=== PATIENT | female | born 1940 | race Caucasian/White ===

== ENCOUNTER 2016-12-26 15:09 | Observation (INO) | payer MEDICARE, OTHER ==
[~2016-12-26] VITALS: Ht 172.7 cm; Wt 73.0 kg
[2016-12-26] VITALS (7 sets, daily range): BP systolic 137–185; BP diastolic 58–80; PULSE 57–65; RESP 14–18; TEMP 97.5–98.4; O2SAT 96–100
[2016-12-26] MEDS ORDERED: SODIUM CHLOR 0.9% 1000 ML INJ 1,000 ML IV ONE (16:00)
[2016-12-26] MEDS ORDERED: SODIUM CHLORIDE 0.9% FLUSH 10 ML FLUSH IVF PRN (16:00)
[2016-12-26] MEDS ORDERED: ONDANSETRON HCL 4 MG/2 ML VIAL IVP ONE (16:00)
[2016-12-26] MEDS ORDERED: TETANUS/DIPHTHERIA TOXOID ADULT 0.5 ML VIAL IM ONE (16:00)
[2016-12-26] MEDS ORDERED: LEVO.075 PO (16:01)
[2016-12-26] MEDS ORDERED: VITA250T3 PO (16:01)
[2016-12-26] MEDS ORDERED: LEXA5TAB PO (16:01)
[2016-12-26] MEDS ORDERED: COQ-50CA2 PO (16:01)
[2016-12-26] MEDS ORDERED: ATEN1TAB73 PO (16:01)
[2016-12-26] MEDS ORDERED: FLAX100013 PO (16:01)
[2016-12-26] MEDS ORDERED: GLUC15009 PO (16:01)
[2016-12-26] MEDS ORDERED: PRAV20TA2 PO (16:01)
[2016-12-26] MEDS ORDERED: MSM1000C PO (16:01)
[2016-12-26] MEDS ORDERED: ALPR.25 PO (16:01)
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
[2016-12-26 16:24] LABS: AUTOMATED NEUTROPHIL # 4.3 TH/MM3 (1.8-7.7); BASOPHIL % 0.2 % (0.0-2.0); EOSINOPHIL # 0.2 TH/MM3 (0-0.4); EOSINOPHIL % 1.8 % (0.0-4.0); HEMATOCRIT 37.3 % (35.0-46.0); HEMO FLAGS DIFF FINAL; LYMPH % 43.5 % (9.0-44.0); LYMPHOCYTE # 3.9 TH/MM3 (1.0-4.8); MEAN CELL VOLUME 93.6 FL (80.0-100.0); MEAN CORPUSCULAR HEMOGLOBIN 31.4 PG (27.0-34.0); MEAN CORPUSCULAR HGB CONC 33.5 % (32.0-36.0); MONO % 6.7 % (0.0-8.0); NEUT % 47.8 % (16.0-70.0); PLATELET COUNT 172 TH/MM3 (150-450); RED BLOOD COUNT 3.98 MIL/MM3 (4.00-5.30); RED CELL DISTRIBUTION WIDTH 13.1 % (11.6-17.2)
[2016-12-26 16:30] LABS: BACTERIA, URINE MANY /hpf; BLOOD, URINE NEG (NEG); COMMENT (UR) CATH-CULTURE IND; CULTURE IF INDICATED CATH CULTURE IND; GLUCOSE,URINE NEG (NEG); KETONE, URINE 10 mg/dL (NEG); NITRITE,URINE POS (NEG); PH, URINE 6.5 (5.0-8.5); SQUAMOUS EPITHELIAL CELL URINE <1 /hpf (0-5); URINE COLOR YELLOW (YELLW/STRAW)
[2016-12-26] MEDS ORDERED: LIDOCAINE HCL 1% 50 ML VIAL ONE (16:33)
--- NOTE | 2016-12-26 16:34 | RADRPT ---
EXAM DATE/TIME: 12/26/2016 16:10 [facility] COMPARISON: No previous studies available for comparison. INDICATIONS : Syncopal episode laceration above left eye, nausea, vomiting. RADIATION DOSE: 56.35 CTDIvol (mGy) MEDICAL HISTORY : Hypertension. Thyroid disease SURGICAL HISTORY : None. ENCOUNTER: Initial ACUITY: 1 day PAIN SCALE: 0/10 LOCATION: cranial TECHNIQUE: Multiple contiguous axial images were obtained of the head. Using automated exposure control and adj ustment of the mA and/or kV according to patient size, radiation dose was kept as low as reasonably a chievable to obtain optimal diagnostic quality images. DICOM format image data is available electro nically for review and comparison. FINDINGS: CEREBRUM: The ventricles are normal for age. No evidence of midline shift, mass lesion, hemorrhage or acute in farction. No extra-axial fluid collections are seen. POSTERIOR FOSSA: The cerebellum and brainstem are intact. The 4th ventricle is midline. The cerebellopontine angle i s unremarkable. EXTRACRANIAL: The visualized portion of the orbits is intact. There is soft tissue swelling over the left frontal b one and orbit SKULL: The calvaria is intact. No evidence of skull fracture. CONCLUSION: Soft tissue swelling over the left orbit and frontal bone with no evidence of fracture or hemorrhage. Simon Ceballos MD on December 26, 2016 at 16:31 Board Certified Radiologist. This report was verified electronically.
[2016-12-26 16:55] LABS: ALT (GPT) 56 U/L (10-53); ANION GAP 10 MEQ/L (5-15); AST (GOT) 75 U/L (15-37); BICARBONATE 25.4 MEQ/L (21.0-32.0); BLOOD UREA NITROGEN 22 MG/DL (7-18); CHLORIDE 107 MEQ/L (98-107); GLOMERULAR FILTRATION RATE 54 ML/MIN (>89); POTASSIUM 3.4 MEQ/L (3.5-5.1); SODIUM (NA) 142 MEQ/L (136-145)
[2016-12-26 16:59] LABS: ALKALINE PHOSPHATASE 62 U/L (45-117); TOTAL BILIRUBIN ADULT 0.5 MG/DL (0.2-1.0)
[2016-12-26] MEDS ORDERED: cefTRIAXone INJ 1,000 MG in SODIUM CHLORIDE 0.9% INJ 100 ML IV ONE (17:00)
--- NOTE | 2016-12-26 17:18 | PD ---
Physical Exam Date Seen by Provider: Dec 26, 2016 Time Seen by Provider: 17:15 Narrative I was asked by attending physician to perform a laceration repair LACERATION LOCATION: Left upper eye LENGTH: 4 cm NUMBER OF STITCHES/SUMANTH: 6 sutures REPAIR: The area of the laceration was prepped with Betadine and sterilely draped. The laceration was infiltrated with 1% lidocaine. The wound was copiously irrigated and explored without evidence of foreign body, tendon injury or neurovascular injury. The wound was closed using 5.0 Prolene. This was a single layer repair. A sterile dressing was applied. The patient was advised to keep the dressing clean and dry. Patient tolerated the procedure well. Data Data Last Documented VS Vital Signs Date Time Temp Pulse Resp B/P (MAP) Pulse Ox O2 Delivery O2 Flow Rate FiO2 12/26/16 16:12 100 Room Air 12/26/16 15:22 97.5 65 14 185/80 (115) Orders Orders Electrocardiogram (12/26/16 15:31) Complete Blood Count With Diff (12/26/16 15:31) Comprehensive Metabolic Panel (12/26/16 15:31) Iv Access Insert/Monitor (12/26/16 15:31) Prothrombin Time / Inr (Pt) (12/26/16 15:56) Urinalysis - C+S If Indicated (12/26/16 15:56) Ct Brain W/O Iv Contrast(Rout) (12/26/16 15:56) Ecg Monitoring (12/26/16 15:56) Oximetry (12/26/16 15:56) Ondansetron Inj (Zofran Inj) (12/26/16 16:00) Sodium Chloride 0.9% Flush (Ns Flush) (12/26/16 16:00) Sodium Chlor 0.9% 1000 Ml Inj (Ns 1000 M (12/26/16 16:00) Tetanus/Diphtheria Tox Adult (Tetanus/Di (12/26/16 16:00) Urine Culture (12/26/16 16:00) Troponin I (12/26/16 15:30) Lidocaine 1% Inj (50 Ml) (Xylocaine 1% I (12/26/16 16:33) Blood Culture (12/26/16 16:49) Ceftriaxone Inj (Rocephin Inj) (12/26/16 17:00) Labs Laboratory Tests Test 12/26/16 15:30 12/26/16 16:00 White Blood Count 9.0 TH/MM3 Red Blood Count 3.98 MIL/MM3 Hemoglobin 12.5 GM/DL Hematocrit 37.3 % Mean Corpuscular Volume 93.6 FL Mean Corpuscular Hemoglobin 31.4 PG Mean Corpuscular Hemoglobin Concent 33.5 % Red Cell Distribution Width 13.1 % Platelet Count 172 TH/MM3 Mean Platelet Volume 8.4 FL Neutrophils (%) (Auto) 47.8 % Lymphocytes (%) (Auto) 43.5 % Monocytes (%) (Auto) 6.7 % Eosinophils (%) (Auto) 1.8 % Basophils (%) (Auto) 0.2 % Neutrophils # (Auto) 4.3 TH/MM3 Lymphocytes # (Auto) 3.9 TH/MM3 Monocytes # (Auto) 0.6 TH/MM3 Eosinophils # (Auto) 0.2 TH/MM3 Basophils # (Auto) 0.0 TH/MM3 CBC Comment DIFF FINAL Differential Comment Blood Urea Nitrogen 22 MG/DL Creatinine 0.99 MG/DL Random Glucose 110 MG/DL Total Protein 7.7 GM/DL Albumin 4.1 GM/DL Calcium Level 9.4 MG/DL Alkaline Phosphatase 62 U/L Aspartate Amino Transf (AST/SGOT) 75 U/L Alanine Aminotransferase (ALT/SGPT) 56 U/L Total Bilirubin 0.5 MG/DL Sodium Level 142 MEQ/L Potassium Level 3.4 MEQ/L Chloride Level 107 MEQ/L Carbon Dioxide Level 25.4 MEQ/L Anion Gap 10 MEQ/L Estimat Glomerular Filtration Rate 54 ML/MIN Troponin I LESS THAN 0.02 NG/ML Prothrombin Time 11.0 SEC Prothromb Time International Ratio 1.0 RATIO Urine Color YELLOW Urine Turbidity HAZY Urine pH 6.5 Urine Specific [place] 1.020 Urine Protein TRACE mg/dL Urine Glucose (UA) NEG mg/dL Urine Ketones 10 mg/dL Urine Occult Blood NEG Urine Nitrite POS Urine Bilirubin NEG Urine Urobilinogen LESS THAN 2.0 MG/DL Urine Leukocyte Esterase LARGE Urine RBC 5 /hpf Urine WBC 68 /hpf Urine Squamous Epithelial Cells <1 /hpf Urine Amorphous Sediment RARE Urine Bacteria MANY /hpf Microscopic Urinalysis Comment CATH-CULTURE IND MDM Medical Record Reviewed: Yes Supervised Visit with LUIS: Yes Diagnosis Primary Impression: Syncope Qualified Codes: R55 - Syncope and collapse Additional Impressions: Concussion Qualified Codes: S06.0X1A - Concussion with loss of consciousness of 30 minutes or less, initial encounter Retrograde amnesia Closed head injury Qualified Codes: S09.90XA - Unspecified injury of head, initial encounter Facial laceration Qualified Codes: S01.81XA - Laceration without foreign body of other part of head, initial encounter UTI (urinary tract infection) Qualified Codes: N39.0 - Urinary tract infection, site not specified Sarah Quezada [facility] Dec 26, 2016 17:18
[2016-12-26] MEDS ORDERED: SODIUM CHLORIDE 0.9% FLUSH 10 ML FLUSH IV FLUSH PRN (17:30)
[2016-12-26] MEDS ORDERED: ALPRAZolam 0.25 MG TAB PO PRN (18:30)
[2016-12-26] MEDS ORDERED: ENALAPRILAT 1.25 MG/ML VIAL IV PUSH PRN (18:30)
[2016-12-26] MEDS ORDERED: hydrALAZINE HCL 10 MG TAB PO PRN (18:30)
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
[2016-12-26] MEDS ORDERED: POTASSIUM CHLORIDE 20 MEQ CONTROLLED RELEASE TAB PO ONE (19:00)
[2016-12-26] MEDS ORDERED: ESCITALOPRAM OXALATE 10 MG TAB PO SCH (21:00)
[2016-12-26] MEDS ORDERED: LEVOTHYROXINE SODIUM 75 MCG TAB PO SCH (21:00)
[2016-12-26] MEDS: SODIUM CHLORIDE 0.9% FLUSH 10 ML FLUSH IV FLUSH SCH (21:25)
--- NOTE | 2016-12-26 22:32 | RADRPT ---
EXAM DATE/TIME: 12/26/2016 21:22 [place] COMPARISON: No previous studies available for comparison. INDICATIONS : Syncope. MEDICAL HISTORY : Hypertension. Thyroid disease. Syncope. SURGICAL HISTORY : None. ENCOUNTER: Initial ACUITY: 1 day PAIN SCORE: 7/10 LOCATION: Bilateral neck PEAK SYSTOLIC VELOCITIES (cm/sec): ICA/CCA RATIO: Right: 1.0 Left: 1.2 ICA: Right: 88.3 Left: 90.4 CCA: Right: 84.3 Left: 72.7 ECA: Right: 98.3 Left: 80.6 VERTEBRAL: Right: 37.4 antegrade Left: 60.9 antegrade Elevated flow velocities and ICA/CCA ratios have been found to correlate with increased degrees of vessel stenosis, calculated as percentage of diameter relative to a normal segment of distal ICA/CCA FINDINGS: RIGHT CAROTID: Trace atherosclerotic plaque of the bulb and proximal internal carotid artery. LEFT CAROTID: Mild atherosclerotic plaque of the bulb and proximal internal carotid artery. By cross-section, appro ximately 30% narrowing of the proximal ICA. VERTEBRAL ARTERIES: Antegrade flow is seen in both vertebral arteries. MISCELLANEOUS: None. CONCLUSION: Bilateral bifurcation atherosclerotic plaque, minimal on the right and mild on the left. No hemodynam ically significant narrowing. Julio Lucio MD on December 26, 2016 at 22:29 Board Certified Radiologist. This report was verified electronically.
[2016-12-27 03:22] VITALS: BP 144/65; PULSE 58; RESP 16; TEMP 98.2; O2SAT 97
[2016-12-27 07:45] VITALS: BP_SYST 154; BP_SYST 181; BP_DIAS 69; BP_DIAS 73; PULSE 60; RESP 16; TEMP 98.3; O2SAT 95
[2016-12-27] MEDS: SODIUM CHLORIDE 0.9% FLUSH 10 ML FLUSH IV FLUSH SCH (08:49)
[2016-12-27] MEDS ORDERED: PRAVASTATIN SOD 20 MG TAB PO SCH (09:00)
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
[2016-12-27] MEDS ORDERED: SODIUM CHLOR 0.9% 1000 ML INJ 1,000 ML IV SCH (11:45)
[2016-12-27 12:00] VITALS: BP 129/58; PULSE 64; RESP 18; TEMP 98.5; O2SAT 96
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
[2016-12-27 14:56] LABS: ALT (GPT) 43 U/L (10-53); ANION GAP 9 MEQ/L (5-15); AST (GOT) 44 U/L (15-37); BICARBONATE 27.7 MEQ/L (21.0-32.0); BLOOD UREA NITROGEN 16 MG/DL (7-18); CHLORIDE 104 MEQ/L (98-107); GLOMERULAR FILTRATION RATE 67 ML/MIN (>89); POTASSIUM 3.9 MEQ/L (3.5-5.1); SODIUM (NA) 141 MEQ/L (136-145)
[2016-12-27 14:59] LABS: ALKALINE PHOSPHATASE 56 U/L (45-117); TOTAL BILIRUBIN ADULT 0.5 MG/DL (0.2-1.0)
[2016-12-27 15:38] VITALS: BP 138/62; PULSE 63; RESP 18; TEMP 98.1; O2SAT 98
[2016-12-27 16:58] VITALS: PULSE 65
[2016-12-27] MEDS ORDERED: cefTRIAXone INJ 1,000 MG in SODIUM CHLORIDE 0.9% INJ 100 ML IV SCH (17:00)
[2016-12-27] MEDS ORDERED: AMLO10 PO (17:40)
[2016-12-27] MEDS ORDERED: NITR100C4 PO (17:40)
[2016-12-27] MEDS ORDERED: NITROFURANTOIN MONOHYD MACROCR 100 MG CAP PO SCH (18:00)
--- NOTE | 2016-12-27 19:40 | MG ---
cc: JACK VASQUEZ Lab No: [id number] Date: 12/27/2016 Age: 76 Sex: F Race: ___ TECHNIQUE 17 channel EEG. DESCRIPTION The background rhythm is a symmetrical alpha rhythm, frequency 8-10 Hz, amplitude is about 20 microvolts. Occasional eye movement and muscle artifact present. There are no lateralizing features seen. There are no epileptiform features. Photic results in a normal driving response. INTERPRETATION Normal EEG MD VIVIAN Paez/LAURO /7:04 PM /7:34 PM
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
--- NOTE | 2016-12-27 21:48 | EKG ---
Date Performed: 12/26/2016 Time Performed: 15:36:19 PTAGE: 76 years EKG: SINUS BRADYCARDIA POSSIBLE LEFT ATRIAL ENLARGEMENT MODERATE INTRAVENTRICULAR CONDUCTION DEL AY PROLONGED QT INTERVAL ABNORMAL ECG NO PREVIOUS TRACING DOCTOR: Kody Velazquez Interpretating Date/Time 12/27/2016 21:46:50
--- NOTE | 2016-12-28 08:13 | ECHRPT ---
Indication: CONCLUSIONS Normal left ventricular size. The left ventricular systolic function is hyperdynamic with an estimated ejection fraction in the ra nge of 65- 70%. Trace mitral valve regurgitation. There is trace tricuspid valve regurgitation. Normal estimated pulmonary pressures. BP: 144 / 65 HR: 58 Rhythm: Sinus MEASUREMENTS (Male / Female) Normal Values Technical Quality:Technically difficult study 2D ECHO LV Diastolic Diameter PLAX 4.2 cm 4.2 - 5.9 / 3.9 - 5.3 cm LV Systolic Diameter PLAX 2.8 cm IVS Diastolic Thickness 0.8 cm 0.6 - 1.0 / 0.6 - 0.9 cm LVPW Diastolic Thickness 0.8 cm 0.6 - 1.0 / 0.6 - 0.9 cm LV Relative Wall Thickness 0.4 LVOT Diameter 1.7 cm Aortic Root Diameter 2.1 cm LA Systolic Diameter LX 3.1 cm 3.0 - 4.0 / 2.7 - 3.8 cm M-MODE AV Cusp Separation MM 1.8 cm DOPPLER AV Peak Velocity 157.5 cm/s AV Peak Gradient 9.9 mmHg AV Mean Gradient 5.0 mmHg AV Velocity Time Integral 34.6 cm LVOT Peak Velocity 100.2 cm/s LVOT Peak Gradient 4.0 mmHg LVOT Velocity Time Integral 23.7 cm LVOT Cardiac Index 1665.6 cm/minm AV Area Cont Eq vti 1.6 cm AV Area Cont Eq pk 1.4 cm Mitral E Point Velocity 84.9 cm/s Mitral A Point Velocity 78.5 cm/s Mitral E to A Ratio 1.1 LV E' Lateral Velocity 9.8 cm/s Mitral E to LV E' Lateral Ratio 8.7 LV E' Septal Velocity 7.2 cm/s Mitral E to LV E' Septal Ratio 11.8 TR Peak Velocity 229.0 cm/s TR Peak Gradient 21.0 mmHg PV Peak Velocity 76.7 cm/s PV Peak Gradient 2.4 mmHg FINDINGS LEFT VENTRICLE Normal left ventricular size. The left ventricular systolic function is hyperdynamic with an estimated ejection fraction in the ra nge of 65- 70%. Left ventricular diastolic function parameters are normal. RIGHT VENTRICLE Normal right ventricular size and systolic function. LEFT ATRIUM The left atrial size is normal. RIGHT ATRIUM The right atrial size is normal. ATRIAL SEPTUM The interatrial septum not well visualized. AORTA The aortic root and proximal ascending aorta are not well visualized. MITRAL VALVE Structurally normal mitral valve. Trace mitral valve regurgitation. No mitral valve stenosis. AORTIC VALVE Trileaflet aortic valve. No aortic valve stenosis or regurgitation. TRICUSPID VALVE Structurally normal tricuspid valve. There is trace tricuspid valve regurgitation. Normal estimated pulmonary pressures. PULMONARY VALVE No pulmonary valve regurgitation or stenosis. VESSELS The inferior vena cava was not well visualized. PERICARDIUM No pericardial effusion. Mark Carrero MD Edited by: [employer] Professor (Electronically Signed) Final Date:27 December 2016 15:28 Amended: 28 December 2016 08:12
== END 2016-12-27 19:40 | disposition home or self-care (01) ==
LOC: NEPE 15:09 → NEDA 17:25 → NEPFCDU 20:10
PROVIDERS: ADMIT Hospitalist; ATTEND Hospitalist
DX: R55 Syncope and collapse (principal); S01.81XA Laceration without foreign body of other part of head, initial encounter; S06.0X1A Concussion with loss of consciousness of 30 minutes or less, initial encounter; S01.112A Laceration without foreign body of left eyelid and periocular area, initial encounter; N39.0 Urinary tract infection, site not specified; B96.20 Unspecified Escherichia coli [E. coli] as the cause of diseases classified elsewhere; R00.1 Bradycardia, unspecified; E03.9 Hypothyroidism, unspecified; E78.5 Hyperlipidemia, unspecified; E87.6 Hypokalemia; R41.2 Retrograde amnesia; F41.9 Anxiety disorder, unspecified; F32.9 Major depressive disorder, single episode, unspecified; Z79.899 Other long term (current) drug therapy
CPT/HCPCS: 12013; 70450; 80053; 81001; 84484; 85025; 85610; 87040; 87077; 87086; 87186; 90471; 90714; 93005; 93306; 93880; 95819; 96361; 96365; 96366; 96375; 97163; 99285; G0378; G8987; G8988; J0696; J2405; J7030